=== PATIENT | female | born 1975 | race Asian ===

== ENCOUNTER → 2017-10-13 | Outpatient (CLI) | payer OTHER | LOC: CIMAGING 07:50 | PROVIDERS: ATTEND Family Medicine | DX: Z12.31 Encounter for screening mammogram for malignant neoplasm of breast (principal) | CPT/HCPCS: G0202 ==

== ENCOUNTER → 2018-02-12 | Outpatient (CLI) | payer OTHER | LOC: CIMAGING 08:57 | PROVIDERS: ATTEND Family Medicine | DX: M25.551 Pain in right hip (principal); Q65.89 Other specified congenital deformities of hip; R53.83 Other fatigue; Z97.5 Presence of (intrauterine) contraceptive device | CPT/HCPCS: 73521-PO ==